=== PATIENT | female | born 1955 | race Caucasian/White ===

== ENCOUNTER → 2019-01-23 | Outpatient (REF) | payer MEDICARE, BC, OTHER ==
[2019-01-23 14:49] LABS: FOLATE 23.5 NG/ML; RHEUMATOID FACTOR QUANT < 10.0 IU/ML (<15.0); TOTAL PROTEIN 6.9 GM/DL (6.4-8.2); VITAMIN B12 LEVEL 669 PG/ML
[2019-01-24 10:12] LABS: ALBUMIN 4.17 GM/DL (3.29-5.55); ALBUMIN % 60.5 % (55.8-66.1); ALPHA-1-GLOBULIN % 4.8 % (2.9-4.9); ALPHA-1-GLOBULINS 0.33 GM/DL (0.17-0.41); ALPHA-2-GLOBULINS 0.78 GM/DL (0.42-0.99); ALPHA-2-GLOBULINS % 11.3 % (7.1-11.8); BETA-1-GLOBULINS 0.47 GM/DL (0.28-0.60); BETA-1-GLOBULINS % 6.8 % (4.7-7.2); BETA-2-GLOBULINS 0.35 GM/DL (0.19-0.55); BETA-2-GLOBULINS % 5.1 % (3.2-6.5); GAMMA GLOBULIN % 11.5 % (11.1-18.8); GAMMA GLOBULINS 0.79 GM/DL (0.65-1.58)
== END ==
LOC: M LABNEURO 11:01
PROVIDERS: ATTEND Psychiatry & Neurology Neurology
DX: G62.9 Polyneuropathy, unspecified (principal); E53.9 Vitamin B deficiency, unspecified

== ENCOUNTER 2020-08-08 19:32 | Emergency (ER) | payer MEDICARE, BC, OTHER ==
[~2020-08-08] VITALS: Ht 170.2 cm; Wt 90.5 kg
--- NOTE | 2020-08-08 21:05 | REPVR ---
PROCEDURE INFORMATION: Exam: XR Left Knee Exam date and time: 08/08/2020 8:17 PM Age: 64 years old Clinical indication: Other: Pain TECHNIQUE: Imaging protocol: XR Left knee. Views: 4 or more views. COMPARISON: No relevant prior studies available. FINDINGS: Bones/joints: There is a comminuted transverse fracture of the patella. There is approximately 2.2 cm of distraction between the largest superior and inferior patellar fragments. No other fracture. Normal alignment. Soft tissues: Mild soft tissue swelling. IMPRESSION: Comminuted fracture of the patella. Electronically signed by: Elder Somers On 08/08/2020 21:04:37 PM
--- NOTE | 2020-08-08 22:02 | REPVR ---
PROCEDURE INFORMATION: Exam: XR Chest, 1 View Exam date and time: 08/08/2020 9:15 PM Age: 64 years old Clinical indication: Other: Trauma TECHNIQUE: Imaging protocol: XR of the chest Views: 1 view. COMPARISON: No relevant prior studies available. FINDINGS: Lungs: Mild right basilar atelectasis. Lungs are otherwise clear. Pleural space: Unremarkable. No pleural effusion. No pneumothorax. Heart/Mediastinum: Unremarkable. No cardiomegaly. Vasculature: Right IJ central venous line projects at the atrial caval junction. Diaphragm: Elevated right hemidiaphragm. Bones/joints: Unremarkable. IMPRESSION: No acute findings. Electronically signed by: Elder Somers On 08/08/2020 22:02:26 PM
[2020-08-08 22:16] LABS: BASO # 0.1 10^3/uL (0.0-0.2); BASO % 1.2 % (0.0-1.0); EOS # 0.1 10^3/uL (0.0-0.5); EOS % 1.5 % (0.0-3.0); HEMATOCRIT 36.2 % (36.0-47.0); HEMOGLOBIN 11.7 g/dl (12.0-15.5); LYMPH # 1.7 10^3/uL (1.5-5.0); LYMPH % 29.5 % (24.0-44.0); MEAN CORPUSCULAR HEMOGLOBIN 29.7 pg (27.0-33.0); MEAN CORPUSCULAR HGB CONC 32.3 g/dl (32.0-36.5); MEAN CORPUSCULAR VOLUME 91.9 fl (80.0-96.0); MONO # 0.3 10^3/uL (0.0-0.8); MONO % 4.9 % (0.0-5.0); NEUTROPHILS # 3.7 10^3/uL (1.5-8.5); NEUTROPHILS % 62.4 % (36.0-66.0); PLATELET COUNT, AUTOMATED 299 10^3/uL (150-450); RED BLOOD COUNT 3.94 10^6/uL (4.00-5.40); WHITE BLOOD COUNT 5.9 10^3/uL (4.0-10.0)
[2020-08-08 22:45] LABS: ALT/SGPT 25 U/L (12-78); BILIRUBIN,DIRECT < 0.1 MG/DL (0.0-0.2); BILIRUBIN,TOTAL 0.2 MG/DL (0.2-1.0); BLOOD UREA NITROGEN 8 MG/DL (7-18); CALCIUM LEVEL 8.9 MG/DL (8.8-10.2); CARBON DIOXIDE LEVEL 30 MEQ/L (21-32); CHLORIDE LEVEL 108 MEQ/L (98-107); CREATININE FOR GFR 0.78 MG/DL (0.55-1.30); ETHYL ALCOHOL (ETHANOL) 0.109 % (0.000-0.010); GLOMERULAR FILTRATION RATE > 60.0 (>45); GLUCOSE, FASTING 99 MG/DL (70-100); POTASSIUM SERUM 3.9 MEQ/L (3.5-5.1); SODIUM LEVEL 143 MEQ/L (136-145); TOTAL PROTEIN 6.8 GM/DL (6.4-8.2)
--- NOTE | 2020-08-08 23:45 | REPVR ---
PROCEDURE INFORMATION: Exam: CT Head Without Contrast Exam date and time: 08/08/2020 11:13 PM Age: 64 years old Clinical indication: Injury or trauma; Fall; Blunt trauma (contusions or hematomas) TECHNIQUE: Imaging protocol: Computed tomography of the head without contrast. Radiation optimization: All CT scans at this facility use at least one of these dose optimization techniques: automated exposure control; mA and/or kV adjustment per patient size (includes targeted exams where dose is matched to clinical indication); or iterative reconstruction. COMPARISON: No relevant prior studies available. FINDINGS: Brain: Normal. No hemorrhage. Unremarkable white matter. No mass effect. Cerebral ventricles: Right frontal ventricular catheter terminates at the foramen of Monro. Mild asymmetric enlargement of the left lateral ventricle. No periventricular edema or signs of obstructive hydrocephalus. Bones/joints: Unremarkable. No acute fracture. Paranasal sinuses: Visualized sinuses are unremarkable. No fluid levels. Mastoid air cells: Visualized mastoid air cells are well aerated. Soft tissues: Unremarkable. IMPRESSION: No acute intracranial abnormality. Electronically signed by: Elder Somers On 08/08/2020 23:45:09 PM
--- NOTE | 2020-08-08 23:50 | REPVR ---
PROCEDURE INFORMATION: Exam: CT Cervical Spine Without Contrast Exam date and time: 08/08/2020 11:13 PM Age: 64 years old Clinical indication: Injury or trauma; Fall; Blunt trauma TECHNIQUE: Imaging protocol: Computed tomography images of the cervical spine without contrast. Radiation optimization: All CT scans at this facility use at least one of these dose optimization techniques: automated exposure control; mA and/or kV adjustment per patient size (includes targeted exams where dose is matched to clinical indication); or iterative reconstruction. COMPARISON: No relevant prior studies available. FINDINGS: Tubes, catheters and devices: Ventricular shunt catheter in the left neck appears intact. Bones/joints: Minor grade 1 anterolisthesis at C3-C4. Otherwise normal alignment. No acute fracture. Discs/Spinal canal/Neural foramina: Advanced discogenic degenerative changes at C4-C5 and C5-C6. No spinal stenosis. Advanced facet DJD. Soft tissues: Unremarkable. Lungs: Lung apices are normal. IMPRESSION: 1. No fracture. 2. Advanced degenerative spondylosis as above. Electronically signed by: Elder Somers On 08/08/2020 23:50:29 PM
--- NOTE | 2020-08-08 23:55 | REPVR ---
PROCEDURE INFORMATION: Exam: CT Left Lower Extremity Without Contrast, Knee Exam date and time: 08/08/2020 11:13 PM Age: 64 years old Clinical indication: Injury or trauma; Fall; Fracture, traumatic; Closed fracture; Patella or knee; Left; Additional info: Patellar fracture TECHNIQUE: Imaging protocol: CT of the Left lower extremity without contrast was performed. Exam focused on the knee. Radiation optimization: All CT scans at this facility use at least one of these dose optimization techniques: automated exposure control; mA and/or kV adjustment per patient size (includes targeted exams where dose is matched to clinical indication); or iterative reconstruction. COMPARISON: CR Knee, complete LEFT 08/08/2020 7:58 PM FINDINGS: Bones/joints: There is a comminuted fracture of the patella. Transverse fracture through the mid portion of the patella with approximately 12 mm of distraction of the superior and inferior fragments. Additional fracture lucencies extend through the inferior pole fragment. Mildly displaced fracture fragment is noted along the lateral inferior patellar pole. Additional foci of air are also present in the fracture site. No other fracture is seen. Normal alignment at the knee. Medial and lateral compartment joint spaces are normal. Soft tissues: Mild prepatellar soft tissue swelling. Small foci of subcutaneous gas are noted anterior to the fracture site. No foreign bodies are seen. IMPRESSION: Comminuted open fracture of the patella. Electronically signed by: Elder Somers On 08/08/2020 23:55:08 PM
[2020-08-09 03:40] VITALS: BP 145/66
[2020-08-09] MEDS ORDERED: Walker XX (03:50)
--- NOTE | 2020-08-09 05:46 | ECGEPIP ---
[facility] - ED Test Date: 2020-08-08 Pat Name: SINDHU ELMORE Department: Room: - Gender: Female Webf[employer] Developer: carlitos : 1955 Requested By: FAIZA Rodriguez Order Number: [id number] Reading MD: Mario Villa Measurements Intervals [place] Rate: 78 P: 45 CA: 176 QRS: 1 QRSD: 97 T: 77 QT: 417 QTc: 475 Interpretive Statements SINUS RHYTHM POOR R WAVE PROGRESSION NONSPECIFIC ST & T-WAVE ABNORMALITY NO PRIORS FOR COMPARISON Electronically Signed on 08-09-2020 5:45:59 EST by Mario Villa
[2020-08-14] MEDS ORDERED: ATOR1TAB21 PO (15:43)
[2020-08-14] MEDS ORDERED: CEVI1CAP PO (15:43)
[2020-08-14] MEDS ORDERED: MULTCAP PO (15:43)
[2020-08-14] MEDS ORDERED: CYCL-707 PO (15:43)
[2020-08-14] MEDS ORDERED: ASPI81TA26 PO (15:43)
[2020-08-14] MEDS ORDERED: GABA-843 PO (15:43)
[2020-08-14] MEDS ORDERED: MUCI1TAB16 PO (15:43)
[2020-08-14] MEDS ORDERED: PROZ40CA PO (15:43)
[2020-08-14] MEDS ORDERED: BENA25CA4 PO (15:43)
[2020-08-14] MEDS ORDERED: PANT40TA29 PO (15:43)
[2020-08-14] MEDS ORDERED: VERA360C PO (15:43)
[2020-08-14] MEDS ORDERED: ALLE10TA32 PO (15:43)
== END 2020-08-09 04:00 | disposition home or self-care (01) ==
LOC: M ED 19:32
DX: S82.032A Displaced transverse fracture of left patella, initial encounter for closed fracture (principal); F10.129 Alcohol abuse with intoxication, unspecified; X58.XXXA Exposure to other specified factors, initial encounter; Y92.9 Unspecified place or not applicable; Y93.9 Activity, unspecified; Y99.9 Unspecified external cause status; M47.812 Spondylosis without myelopathy or radiculopathy, cervical region; Z79.82 Long term (current) use of aspirin; Z79.899 Other long term (current) drug therapy; Z88.0 Allergy status to penicillin; Z91.030 Bee allergy status; Z88.1 Allergy status to other antibiotic agents; Z88.5 Allergy status to narcotic agent; Z88.8 Allergy status to other drugs, medicaments and biological substances
CPT/HCPCS: 70450; 71045; 72125; 73564; 73700; 80048; 80076; 85025; 85730; 86850; 86900; 86901; 93005; 99284; G0480; U0002

== ENCOUNTER → 2020-08-13 | Outpatient (CLI) | payer MEDICARE, BC, OTHER ==
[~2020-08-13] MED LIST: ALLE10TA32 PO; ASPI81TA26 PO; ATOR1TAB21 PO; BENA25CA4 PO; CEVI1CAP PO; CYCL-707 PO; GABA-843 PO; MUCI1TAB16 PO; MULTCAP PO; PANT40TA29 PO; PROZ40CA PO; VERA360C PO; Walker XX
== END ==
LOC: M LABSMTC 14:04
PROVIDERS: ATTEND Anesthesiology
DX: Z01.812 Encounter for preprocedural laboratory examination (principal); Z20.828 Contact with and (suspected) exposure to other viral communicable diseases

== ENCOUNTER 2020-08-18 09:25 | Day surgery (SDC) | payer MEDICARE, BC, OTHER ==
[~2020-08-18] VITALS: Ht 170.2 cm; Wt 92.1 kg
[~2020-08-18 09:25] MED LIST changes: +LIDOCAINE 1% MDV 20ML VIAL SQ PRN; +LR 1,000 ML IV ONE; +MIDAZOLAM INJ 2MG/2ML VIAL (J2250 PER 1MG) IV SCH; +fentaNYL 100 MCG/2 ML INJECTION (J3010) IV SCH
[2020-08-18] MEDS ORDERED: MIDAZOLAM INJ 2MG/2ML VIAL (J2250 PER 1MG) As Ordered ONE ×2 (09:54→11:42)
[2020-08-18] MEDS ORDERED: fentaNYL 100 MCG/2 ML INJECTION (J3010) As Ordered ONE (09:54)
[2020-08-18 10:08] LABS: INR 0.86; PROTHROMBIN TIME 11.9 SECONDS (12.5-14.3)
[2020-08-18] MEDS ORDERED: BUPIVACAINE LIPOSOME/PF 1.3% 20ML VIAL (13.3MG/ML)(EXPAREL)(C9290 PER1MG) As Ordered ONE (10:25)
[2020-08-18] MEDS ORDERED: ceFAZolin SOD 2 GM in IV 1 EA IV ONE (10:30)
[2020-08-18] MEDS ORDERED: dexameTHASONE 10MG/1ML VIAL PRES.FREE (J1100 PER 1MG) XX ONE (11:00)
[2020-08-18] MEDS ORDERED: ROPIvacaine 0.5% 30ML INJECTION (J2795 PER 1MG) XX ONE (11:00)
[2020-08-18] MEDS ORDERED: LIDOCAINE 1% MDV 20ML VIAL XX ONE (11:00)
[2020-08-18] MEDS ORDERED: dexameTHASONE 4 MG/ML 1ML VIAL (J1100 PER 1MG) As Ordered ONE (11:42)
[2020-08-18] MEDS ORDERED: ONDANSETRON 4MG/2ML VIAL As Ordered ONE (11:42)
[2020-08-18] MEDS ORDERED: IBUPROFEN 200MG TAB PO PRN (13:00)
[2020-08-18] MEDS ORDERED: ONDANSETRON 4MG/2ML VIAL IV PRN (13:00)
[2020-08-18] MEDS ORDERED: LR 1,000 ML IV SCH ×2 (13:00)
[2020-08-18] MEDS ORDERED: fentaNYL 100 MCG/2 ML INJECTION (J3010) IV PRN (13:00)
[2020-08-18] MEDS ORDERED: ACETAMINOPHEN TAB 650MG DOSE (2X325MG) PO PRN (13:00)
--- NOTE | 2020-08-18 13:39 | REP ---
INDICATION: LEFT PATELLA ORIV. COMPARISON: 08/08/2020 CT. TECHNIQUE: Two C-arm views left knee performed. FINDINGS: Two screws are seen in the patella. The osseous structures are well-aligned. IMPRESSION: 64 seconds fluoroscopy time utilized. <Electronically signed by Zachary Oliveros > 08/18/20 [id number]
--- NOTE | 2020-08-18 14:12 | RO ---
DATE OF OPERATION: 08/18/2020 SURGEON: Dr. Rivera WATER PROJECT MANAGER: Dr. Jose Daniels ANESTHETIC: Spinal anesthetic. PREOPERATIVE DIAGNOSIS: Left patella fracture. POSTOPERATIVE DIAGNOSIS: Left patella fracture. PLANNED PROCEDURE: Open reduction, internal fixation (ORIF), left patella. PROCEDURE PERFORMED: Open reduction, internal fixation (ORIF), left patella. IMPLANTS USED: Synthes partially threaded cannulated screws with FiberTape. OPERATIVE PREAMBLE: This 64-year-old female had a slip and fall directly onto her knee at home while intoxicated. She had a displaced, mostly transverse but slightly comminuted inferior pole patella fracture. We discussed pros, cons, risks, benefits of going ahead with surgery. I saw her in preoperative holding and reiterated the risks of surgery, marked the left lower extremity, and proceeded to surgery. The patient had many different drug allergies, so after a long discussion we decided to go ahead with cephazolin as preoperative antibiotic of choice, as she simply had some mild gastrointestinal (GI) upset in the past. OPERATIVE REPORT: Patient was brought to the operating theater. They administered spinal anesthetic. They administered 2 grams of intravenous (IV) Ancef. No obvious reaction with this after a test dose. The limb was prepped and draped in the usual sterile fashion with chlorhexidine-based prep solation. Allowed over 3 minutes of prep solution drying time prior to draping. Bump was placed under the left hip. A 34-inch tourniquet was applied to the left thigh and appropriately padded. Bone foam leg positioner was used. The limb was prepped and draped in the usual sterile fashion. A preoperative time-out was performed, confirming the site, the patient, and surgery. We began by elevating the limb and inflating the tourniquet to 250 mm of mercury throughout the duration of the case. I let down the tourniquet prior to the end of the case at approximately 40 minutes. A standard longitudinal incision was made over the anterior aspect of the knee. I carried this dissection down through skin and subcutaneous tissue, achieving meticulous hemostasis. I identified the fracture site, fracture fragments. Cleared away any interbone fracture, hematoma and periosteum. I extended the leg. I achieved preliminary reduction. There was one large fracture fragment of the articular surface. This had a small amount of comminution. This appeared acceptably large to fit two cannulated screws from the Synthes patella fracture fixation set. I extended the leg, achieved anatomic reduction, and used two fracture reduction forceps on either side of the fracture to obtain near-anatomic reduction. There was no obvious step of the joint on AP and lateral radiographs. I placed two cannulated guidewires in appropriate fashion. These measured 46 mm, so I took off approximately 4 mm for slight length of the soft tissue and to allow compression of the fracture site. I over-drilled each of the wires and then placed the two partially threaded cannulated screws one at a time to achieve appropriate compression across the fracture site. I ensured that these were outside the articular surface and correlating on AP and lateral radiographs. I was happy with the reduction at that point. I next used the Synthes FiberTape on a straight needle to create a box and X configuration of the suture tape. A screw was to achieve a tension band construct. I tied a knot superomedially. I then used #1 Vicryl to close the retinaculum on either wide as well as secure small comminuted fragments of bone on the lateral inferior patella area. I was happy with the reduction. The fracture appeared stable. I then let down the tourniquet. Meticulous hemostasis was achieved. I then thoroughly irrigated the wound with normal saline. Subcutaneous tissues closed with interrupted running 2-0 Vicryl sutures. There was 20 mL of Exparel used in the soft tissues. I then cleaned the skin with wet and dry dressing followed by application of Prineo wound care dressing, Dermabond over top. Patient did have a slight adhesive allergy, but it sounded like she had had, according to her, Dermabond in the past without difficulty during breast surgery, so this was applied. Dressing was allowed to fully dry followed by an ABD and over-wrapped with sterile 6-inch Donovan bandage. The patient's lower extremity was then placed into the knee immobiizer in full extension after the drapes were removed. The patient was transferred off the operating room table and taken to the postanesthetic care unit in stable condition. All sponge counts, needle counts, and instrument counts were correct. Estimated blood loss 50 mL. She is only toe- touch weightbearing with the brace on in full extension with crutches. Followup in the office in 2 weeks time. Leave the dressing on for the first 2 weeks after surgery. May shower over tub but further to be not standing independently in the shower at this point. We will start early gentle range of motion, and pain control will be achieved with oral [id number] medications, but she has many different narcotic allergies unfortunately. The spinal anesthetic and Exparel should help with pain. The corporate administrative assistant, Jsoe Daniels, was instrumental in holding position of the limb, achieving a reduction, and completing the case. ELIAZAR
[2020-08-18 14:30] VITALS: BP 151/70
== END 2020-08-18 15:03 | disposition home or self-care (01) ==
LOC: M SDC 09:25
PROVIDERS: ATTEND Orthopaedic Surgery Sports Medicine
DX: S82.045A Nondisplaced comminuted fracture of left patella, initial encounter for closed fracture (principal); E78.00 Pure hypercholesterolemia, unspecified; I10 Essential (primary) hypertension; I25.10 Atherosclerotic heart disease of native coronary artery without angina pectoris; I34.1 Nonrheumatic mitral (valve) prolapse; I49.8 Other specified cardiac arrhythmias; K21.9 Gastro-esophageal reflux disease without esophagitis; F41.9 Anxiety disorder, unspecified; F32.9 Major depressive disorder, single episode, unspecified; G47.33 Obstructive sleep apnea (adult) (pediatric); R51.9 Headache, unspecified; W01.0XXA Fall on same level from slipping, tripping and stumbling without subsequent striking against object, initial encounter; Y92.009 Unspecified place in unspecified non-institutional (private) residence as the place of occurrence of the external cause; Y99.9 Unspecified external cause status; Z78.0 Asymptomatic menopausal state; Z79.82 Long term (current) use of aspirin; Z79.899 Other long term (current) drug therapy; Z85.3 Personal history of malignant neoplasm of breast; Z88.1 Allergy status to other antibiotic agents; Z88.5 Allergy status to narcotic agent; Z88.8 Allergy status to other drugs, medicaments and biological substances; Z87.891 Personal history of nicotine dependence; Z90.13 Acquired absence of bilateral breasts and nipples; Z91.030 Bee allergy status; Z92.21 Personal history of antineoplastic chemotherapy; Z92.3 Personal history of irradiation; Z96.1 Presence of intraocular lens
CPT/HCPCS: 27524; 36415; 76000; 85610; C1713; C9290; J0690; J1100; J2250; J2405

== ENCOUNTER → 2020-10-12 | Outpatient (CLI) | payer MEDICARE, BC, OTHER ==
[~2020-10-12] MED LIST changes: +GABA-282 PO; -GABA-843 PO; -LIDOCAINE 1% MDV 20ML VIAL SQ PRN; -LR 1,000 ML IV ONE; -MIDAZOLAM INJ 2MG/2ML VIAL (J2250 PER 1MG) IV SCH; -fentaNYL 100 MCG/2 ML INJECTION (J3010) IV SCH
--- NOTE | 2020-10-12 10:16 | REP ---
INDICATION: RECHECK. COMPARISON: 08/08/2020 TECHNIQUE: AP, lateral, bilateral oblique and sunrise views of the left knee FINDINGS: Patient is noted to be status post satisfactory fixation for transverse mid patellar fracture. Two screws extend from the superior margin of the patella through the fracture line with seemingly satisfactory reduction and positioning. Surrounding soft tissue swelling noted. Visualized portions of the distal femur and proximal tibia/fibula appear essentially stable. IMPRESSION: Status post fixation for transverse patellar fracture. Current exam demonstrates overlying soft tissue swelling. <Electronically signed by Fredy Srinivasan > 10/12/20 [id number]
== END ==
LOC: M SOG 09:45
PROVIDERS: ATTEND Orthopaedic Surgery Sports Medicine
DX: S82.032D Displaced transverse fracture of left patella, subsequent encounter for closed fracture with routine healing (principal)

== ENCOUNTER → 2020-11-24 | Outpatient (CLI) | payer MEDICARE, BC, OTHER ==
--- NOTE | 2020-11-24 13:05 | REP ---
INDICATION: F/U LEFT KNEE FX. COMPARISON: Comparison left knee radiographs 12 October 2020.. TECHNIQUE: Four views of the left knee are provided. AP, lateral, tunnel, and sunrise views are included. FINDINGS: Patient is status post metallic screw fixation of transverse patellar fracture. There is some bony hypertrophy of the inferior pole of patella and a 1-2 mm step-off is seen in the cortical margin of the posterior aspect of the patella on lateral radiograph. These findings are unchanged from the October 12, 2020 study. There is medial and lateral patellar fragmented spurring on the sunrise view unchanged. No evidence of significant joint effusion. IMPRESSION: Post pin fixation for patellar fracture. Alignment unchanged. <Electronically signed by Jose Alcaraz > 11/24/20 [id number]
== END ==
LOC: M SOG 08:52
PROVIDERS: ATTEND Orthopaedic Surgery Sports Medicine
DX: S82.032D Displaced transverse fracture of left patella, subsequent encounter for closed fracture with routine healing (principal); X58.XXXD Exposure to other specified factors, subsequent encounter; Z96.7 Presence of other bone and tendon implants

== ENCOUNTER → 2021-09-07 | Outpatient (CLI) | payer MEDICARE, BC, OTHER ==
--- NOTE | 2021-09-07 15:19 | REPVR ---
PROCEDURE INFORMATION: Exam: CT Head Without Contrast Exam date and time: 09/07/2021 2:40 PM Age: 65 years old Clinical indication: Condition or disease; Other: Hydrocephalus TECHNIQUE: Imaging protocol: Computed tomography of the head without contrast. Radiation optimization: All CT scans at this facility use at least one of these dose optimization techniques: automated exposure control; mA and/or kV adjustment per patient size (includes targeted exams where dose is matched to clinical indication); or iterative reconstruction. COMPARISON: CT Head without contrast 08/08/2020 11:08 PM FINDINGS: Tubes, catheters and devices: A right frontal ventricular catheter passes through the collapsed right lateral ventricle reaching the right foramen of Monro. There does not appear to be compression of the left foramen of Monro on coronal image 17 and axial image 13. There is continuing prominence of the left lateral ventricle as seen previously without evidence of periventricular edema to suggest transependymal flow. Brain: Normal. No hemorrhage. Unremarkable white matter. No mass effect. Cerebral ventricles: The extracranial shunt valve and connections appear intact. Paranasal sinuses: Visualized sinuses are unremarkable. No fluid levels. Mastoid air cells: Visualized mastoid air cells are well aerated. Bones/joints: See "Tubes, catheters and devices" finding. Soft tissues: Unremarkable. IMPRESSION: 1. A right frontal ventricular catheter passes through the collapsed right lateral ventricle reaching the right foramen of Monro. There does not appear to be compression of the left foramen of Monro on coronal image 17 and axial image 13. There is continuing prominence of the left lateral ventricle as seen previously without evidence of periventricular edema to suggest transependymal flow. 2. The extracranial shunt valve and connections appear intact. Electronically signed by: Justo Chacon On 09/07/2021 15:19:06 PM
--- NOTE | 2021-09-07 15:29 | REP ---
INDICATION: HYDROCEPHALUS-CT APPT FIRST. COMPARISON: None. TECHNIQUE: AP and lateral views of the skull, AP chest, AP abdomen. FINDINGS: Proximal end of the [employer] shunt is in the midline of the mid cranium. The shunt tubing extends inferiorly in the right neck soft tissues and soft tissues of the right hemithorax, into the abdomen with the distal tip in the left pelvis. There is no evidence of discontinuity or kinking of the shunt tubing. The osseous structures of the skull are intact with no abnormality identified. There is elevation of the right hemidiaphragm. No infiltrate is seen in either lung. The heart is not enlarged. The mediastinal silhouette is unremarkable. The bowel gas pattern is normal. There are degenerative changes of the lumbar spine. IMPRESSION: No evidence of discontinuity or kinking of the [employer] shunt tubing. <Electronically signed by Zachary Oliveros > 09/07/21 [id number]
== END ==
LOC: M RAD 14:02
PROVIDERS: ATTEND Psychiatry & Neurology Neurology
DX: G91.9 Hydrocephalus, unspecified (principal); Z98.2 Presence of cerebrospinal fluid drainage device

== ENCOUNTER → 2022-02-17 | Outpatient (CLI) | payer MEDICARE, BC, OTHER | LOC: M SOG 07:58 | PROVIDERS: ATTEND Orthopaedic Surgery Adult Reconstructive Orthopaedic Surgery | DX: M25.562 Pain in left knee (principal); S82.032D Displaced transverse fracture of left patella, subsequent encounter for closed fracture with routine healing ==

== ENCOUNTER 2022-06-03 14:48 | Emergency (ER) | payer MEDICARE, BC, OTHER ==
[~2022-06-03] VITALS: Ht 170.2 cm; Wt 85.9 kg
[2022-06-03] MEDS ORDERED: NS 1,000 ML IV ONE (15:40)
[2022-06-03 15:55] LABS: BASO # 0.1 10^3/uL (0.0-0.2); BASO % 0.7 % (0.0-1.0); EOS # 0.1 10^3/uL (0.0-0.5); EOS % 1.4 % (0.0-3.0); HEMATOCRIT 37.3 % (36.0-47.0); HEMOGLOBIN 12.1 g/dl (12.0-15.5); LYMPH # 1.4 10^3/uL (1.5-5.0); LYMPH % 16.8 % (24.0-44.0); MEAN CORPUSCULAR HGB CONC 32.4 g/dl (32.0-36.5); MEAN CORPUSCULAR VOLUME 92.3 fl (80.0-96.0); MONO # 0.6 10^3/uL (0.0-0.8); MONO % 6.9 % (2.0-8.0); NEUTROPHILS # 6.3 10^3/uL (1.5-8.5); NEUTROPHILS % 73.8 % (36.0-66.0); PLATELET COUNT, AUTOMATED 310 10^3/uL (150-450); RED BLOOD COUNT 4.04 10^6/uL (4.00-5.40); WHITE BLOOD COUNT 8.5 10^3/uL (4.0-10.0)
[2022-06-03] MEDS ORDERED: ISOVUE-370 76% 100ML VIAL As Ordered ONE (16:00)
[2022-06-03] MEDS ORDERED: ONDANSETRON 4MG 2ML VIAL IV ONE (16:00)
[2022-06-03] MEDS ORDERED: KETOROLAC 30 MG/ML 1ML VIAL IV ONE (16:00)
[2022-06-03 16:29] LABS: ALBUMIN 3.7 GM/DL (3.2-5.2); ALT/SGPT 40 U/L (12-78); AMYLASE 19 U/L (25-115); BILIRUBIN,DIRECT 0.2 MG/DL (0.0-0.2); BILIRUBIN,TOTAL 0.3 MG/DL (0.2-1.0); BLOOD UREA NITROGEN 6 MG/DL (7-18); CALCIUM LEVEL 9.4 MG/DL (8.8-10.2); CARBON DIOXIDE LEVEL 26 MEQ/L (21-32); CHLORIDE LEVEL 107 MEQ/L (98-107); GLOMERULAR FILTRATION RATE > 60.0 (>45); GLUCOSE, FASTING 86 MG/DL (70-100); LIPASE 104 U/L (73-393); POTASSIUM SERUM 3.4 MEQ/L (3.5-5.1); SODIUM LEVEL 140 MEQ/L (136-145); TOTAL PROTEIN 6.7 GM/DL (6.4-8.2)
[2022-06-03 20:20] VITALS: BP 148/70
== END 2022-06-03 20:21 | disposition home or self-care (01) ==
LOC: M ED 14:48
DX: R19.7 Diarrhea, unspecified (principal); I10 Essential (primary) hypertension; E78.5 Hyperlipidemia, unspecified; R51.9 Headache, unspecified; K21.9 Gastro-esophageal reflux disease without esophagitis; F41.9 Anxiety disorder, unspecified; F32.9 Major depressive disorder, single episode, unspecified; G47.33 Obstructive sleep apnea (adult) (pediatric); M85.80 Other specified disorders of bone density and structure, unspecified site; Z79.82 Long term (current) use of aspirin; Z79.899 Other long term (current) drug therapy; Z88.0 Allergy status to penicillin; Z91.030 Bee allergy status; Z88.1 Allergy status to other antibiotic agents; Z88.5 Allergy status to narcotic agent; Z88.8 Allergy status to other drugs, medicaments and biological substances
CPT/HCPCS: 74177; 80047; 80048; 80076; 82150; 83690; 85025; 87507; 96361; 96374; 96375; 99284; J1885; J2405; Q9967

== ENCOUNTER → 2024-04-10 | Outpatient (CLI) | payer MEDICARE, BC ==
[2024-04-10 15:46] LABS: BASO # 0.1 10^3/uL (0.0-0.2); BASO % 1.2 % (0.0-1.0); EOS # 0.1 10^3/uL (0.0-0.5); EOS % 1.4 % (0.0-3.0); HEMATOCRIT 39.5 % (36.0-47.0); HEMOGLOBIN 13.1 g/dl (12.0-15.5); LYMPH # 1.9 10^3/uL (1.5-5.0); LYMPH % 26.6 % (24.0-44.0); MEAN CORPUSCULAR HEMOGLOBIN 32.1 pg (27.0-33.0); MEAN CORPUSCULAR HGB CONC 33.2 g/dl (32.0-36.5); MEAN CORPUSCULAR VOLUME 96.8 fl (80.0-96.0); MONO # 0.4 10^3/uL (0.0-0.8); MONO % 5.5 % (2.0-8.0); NEUTROPHILS # 4.7 10^3/uL (1.5-8.5); PLATELET COUNT, AUTOMATED 301 10^3/uL (150-450); RED BLOOD COUNT 4.08 10^6/uL (4.00-5.40); WHITE BLOOD COUNT 7.2 10^3/uL (4.0-10.0)
[2024-04-10 16:08] LABS: THYROID STIMULATING HORMONE 2.876 uIU/ML (0.55-4.78)
[2024-04-10 16:09] LABS: TOTAL 25(OH) VITAMIN D 36.6 NG/ML (20.0-100.0)
[2024-04-14 17:02] LABS: LYME TOTAL ANTIBODY CIA 0.96 Index (<=0.90)
[2024-04-14 19:13] LABS: LYME AB IGG BY CIA <= 0.90 Index (<=0.90); LYME AB IGM BY CIA <= 0.90 Index (<=0.90)
== END ==
LOC: M PLALAB 14:14
PROVIDERS: ATTEND Family Medicine
DX: R53.83 Other fatigue (principal); Z79.899 Other long term (current) drug therapy

== ENCOUNTER → 2024-07-23 | Outpatient (REF) | payer MEDICARE, BC ==
[~2024-07-23] MED LIST changes: +GABA-1172 PO; -GABA-282 PO
== END ==
LOC: M LAB REF 12:47
PROVIDERS: ATTEND Physician Assistant Medical
DX: R30.0 Dysuria (principal)

== ENCOUNTER → 2024-08-01 | Outpatient (REF) | payer MEDICARE, BC | LOC: M SFHCPLAZ 11:43 | PROVIDERS: ATTEND Physician Assistant Medical | DX: R30.0 Dysuria (principal) ==

== ENCOUNTER → 2024-11-27 | Outpatient (REF) | payer MEDICARE, BC | LOC: M SFHCPLAZ 12:46 | PROVIDERS: ATTEND Nurse Practitioner Adult Health | DX: R09.81 Nasal congestion (principal) ==

== ENCOUNTER → 2025-01-07 | Outpatient (CLI) | payer MEDICARE, BC ==
[2025-01-07 18:52] LABS: BASO # 0.1 10^3/uL (0.0-0.2); BASO % 1.1 % (0.0-1.0); EOS # 0.2 10^3/uL (0.0-0.5); EOS % 2.3 % (0.0-3.0); HEMATOCRIT 40.2 % (36.0-47.0); HEMOGLOBIN 13.4 g/dl (12.0-15.5); LYMPH % 28.8 % (24.0-44.0); MEAN CORPUSCULAR HEMOGLOBIN 31.6 pg (27.0-33.0); MEAN CORPUSCULAR HGB CONC 33.3 g/dl (32.0-36.5); MEAN CORPUSCULAR VOLUME 94.8 fl (80.0-96.0); MONO # 0.4 10^3/uL (0.0-0.8); MONO % 6.2 % (2.0-8.0); NEUTROPHILS # 4.3 10^3/uL (1.5-8.5); NEUTROPHILS % 61.5 % (36.0-66.0); PLATELET COUNT, AUTOMATED 213 10^3/uL (150-450); RED BLOOD COUNT 4.24 10^6/uL (4.00-5.40)
[2025-01-07 18:55] LABS: CPK CREATINE PHOSPHOKINASE 23 U/L (34-145)
[2025-01-07 18:56] LABS: ALT/SGPT 10 U/L (7.0-40); AST/SGOT 9 U/L (<34); BLOOD UREA NITROGEN 12 MG/DL (9-23); CALCIUM LEVEL 9.4 MG/DL (8.3-10.6); CARBON DIOXIDE LEVEL 30 MMOL/L (20-31); CHLORIDE LEVEL 107 MMOL/L (98-107); CHOLESTEROL LEVEL 134 MG/DL (<200); CHOLESTEROL RISK RATIO 2.36 (<5); CREATININE FOR GFR 0.72 MG/DL (0.55-1.30); GLOMERULAR FILTRATION RATE > 60.0 (>39); GLUCOSE, FASTING 79 MG/DL (74-106); HDL CHOLESTEROL 56.7 MG/DL (>40); LDL CHOLESTEROL 44.1 MG/DL (<100); NON-HDL-C 77.3 MG/DL; POTASSIUM SERUM 4.2 MMOL/L (3.5-5.1); SODIUM LEVEL 142 MMOL/L (136-145); TRIGLYCERIDES LEVEL 166 MG/DL (<150)
== END ==
LOC: M PLALAB 12:01
DX: R00.2 Palpitations (principal); G47.33 Obstructive sleep apnea (adult) (pediatric); J43.9 Emphysema, unspecified; I10 Essential (primary) hypertension; I34.0 Nonrheumatic mitral (valve) insufficiency

== ENCOUNTER → 2025-01-07 | Outpatient (CLI) | payer MEDICARE, BC ==
[2025-01-07 18:55] LABS: BASO # 0.1 10^3/uL (0.0-0.2); BASO % 1.2 % (0.0-1.0); EOS # 0.2 10^3/uL (0.0-0.5); EOS % 2.2 % (0.0-3.0); HEMATOCRIT 40.5 % (36.0-47.0); HEMOGLOBIN 13.3 g/dl (12.0-15.5); LYMPH % 28.8 % (24.0-44.0); MEAN CORPUSCULAR HEMOGLOBIN 31.1 pg (27.0-33.0); MEAN CORPUSCULAR HGB CONC 32.8 g/dl (32.0-36.5); MEAN CORPUSCULAR VOLUME 94.8 fl (80.0-96.0); MONO # 0.5 10^3/uL (0.0-0.8); NEUTROPHILS # 4.2 10^3/uL (1.5-8.5); NEUTROPHILS % 60.5 % (36.0-66.0); PLATELET COUNT, AUTOMATED 208 10^3/uL (150-450); RED BLOOD COUNT 4.27 10^6/uL (4.00-5.40); WHITE BLOOD COUNT 6.9 10^3/uL (4.0-10.0)
[2025-01-07 18:59] LABS: C REACTIVE PROTEIN QUANTITATIV < 0.50 MG/DL (<1.0); FERRITIN 47.7 NG/ML (7.3-270.7); IRON (FE) 115 UG/DL (50-170); PERCENT SATURATION 37.2 % (13.2-45.0); TOTAL IRON BINDING CAPACITY 309 UG/DL (250-425)
[2025-01-07 19:00] LABS: ERYTHROCYTE SEDIMENTATION RATE 22 mm/hr (0-30); THYROID STIMULATING HORMONE 3.405 uIU/ML (0.55-4.78)
[2025-01-07 19:02] LABS: VITAMIN B12 LEVEL 477 PG/ML (211-911)
== END ==
LOC: M PLALAB 12:07
PROVIDERS: ATTEND Family Medicine
DX: R61 Generalized hyperhidrosis (principal); L60.9 Nail disorder, unspecified; D48.5 Neoplasm of uncertain behavior of skin

== ENCOUNTER → 2025-09-11 | Outpatient (CLI) | payer MEDICARE, BC ==
[~2025-09-11] MED LIST changes: -VERA360C PO; +VERA360C6 PO
== END ==
LOC: M PLAIMG 14:15
PROVIDERS: ATTEND Otolaryngology
DX: J32.0 Chronic maxillary sinusitis (principal); J34.2 Deviated nasal septum